=== PATIENT | female | born 1975 | race Caucasian/White ===

== ENCOUNTER 2017-09-10 11:33 | Emergency (ER) | payer BC ==
[2017-09-10] MEDS ORDERED: ONDANSETRON ODT 4 MG TABLET TL STA (12:37)
[2017-09-10] MEDS ORDERED: IBUPROFEN 800 MG TABLET PO STA (12:37)
--- NOTE | 2017-09-10 12:40 | ED Physician Documentation ---
History of Present Illness - Stated complaint Stated Complaint: ANKLE PX - Chief complaint Chief Complaint: Ext Problem - History obtained from History obtained from: Patient, Family - History of Present Illness Timing: How many days ago (2) Pain level max: 7 Pain level now: 5 Improved by: rest Worsened by: walking - Additonal information Additional information: Patient is a 42-year-old female who presents to the emergency department with left ankle pain after flying from [place]. Does not recall an injury. States it is worse with walking and better with rest. No swelling or deformity. She also states she has mild nausea. Her LMP was 2 weeks ago and normal. Review of Systems Cardiac: denies: Chest pain / pressure Respiratory: denies: Dyspnea Musculoskeletal: denies: Neck pain, Back pain Neurologic: denies: Headache PD PAST MEDICAL HISTORY - Past Medical History Past Medical History: Yes Cardiovascular: Hypertension Respiratory: Asthma Neuro: None Endocrine/Autoimmune: None GI: None NIGHT ORDER SELECTOR: None : None HEENT: None Psych: Depression Musculoskeletal: Fibromyalgia Derm: None - Past Surgical History Past Surgical History: Yes General: Other - Present Medications Home Medications: Ambulatory Orders Medication Instructions Recorded Confirmed Citalopram [CeleXA] 20 mg PO DAILY 09/10/17 09/10/17 Ibuprofen [Motrin] 800 mg PO Q8H PRN #30 tablet 09/10/17 Lisinopril/Hydrochlorothiazide 1 tab PO DAILY 09/10/17 09/10/17 [Lisinopril-Hctz 20-25 mg Tab] Norgestrel-Ethinyl Estradiol 1 each PO DAILY 09/10/17 09/10/17 [Low-Ogestrel] Pregabalin [Lyrica] 150 mg PO 09/10/17 Promethazine [Phenergan] 25 mg PO Q6H PRN #10 tab 09/10/17 - Allergies Allergies/Adverse Reactions: Allergies Allergy/AdvReac Type Severity Reaction Status Date / Time No Known Drug Allergies Allergy Verified 09/10/17 12:41 - Social History Does the pt smoke?: No Smoking Status: Never smoker Does the pt drink ETOH?: Yes Does the pt have substance abuse?: No - Immunizations Immunizations are current?: Yes PD ED PE NORMAL - Vitals Vital signs reviewed: Yes - General General: Alert and oriented X 3, No acute distress - HEENT HEENT: Moist mucous membranes - Derm Derm: Warm and dry - Extremities Extremities: No edema, No calf tenderness / cord, Other (TTP medial malleolus L ankle. mild swelling. o/w normal exam of the foot, ankle and lower leg. NVI.) Results - Vitals Vitals: Vital Signs - 24 hr 09/10/17 09/10/17 11:44 13:34 Temperature 36.1 C L 36.1 C L Heart Rate 89 86 Respiratory 18 17 Rate Blood Pressure 123/79 131/56 H O2 Saturation 100 96 Oxygen O2 Source Room air - Rads (name of study) L ankle xray Radiology: Prelim report reviewed, EMP read contemporaneously, See rad report ( Normal ankle radiography) PD MEDICAL DECISION MAKING - ED course Complexity details: reviewed results, re-evaluated patient, considered differential, d/w patient, d/w family ED course: Patient is a 42-year-old female who presents to the emergency department what appears to be a left ankle sprain. Placed in a gel splint and on crutches. Will prescribe a small amount pain medications well. No evidence of fracture on x-ray. No evidence of gout. No cellulitis. No overlying skin changes. No evidence of DVT. Patient counseled regarding signs and symptoms for which I believe and urgent re-evaluation would be necessary. Patient with good understanding of and agreement to plan and is comfortable going home at this time This document was made in part using voice recognition software. While efforts are made to proofread this document, sound alike and grammatical errors may occur. Departure - Departure Disposition: 01 Home, Self Care Clinical Impression: Left ankle sprain Qualifiers: Encounter type: initial encounter Involved ligament of ankle: unspecified ligament Qualified Code(s): S93.402A - Sprain of unspecified ligament of left ankle, initial encounter Condition: Good Instructions: ED Sprain Ankle Follow-Up: Provider,Other [Primary Care Provider] - Within 1 week Prescriptions: Ibuprofen [Motrin] 800 mg PO Q8H PRN #30 tablet PRN Reason: PAIN &/OR FEVER Promethazine [Phenergan] 25 mg PO Q6H PRN #10 tab PRN Reason: Nausea / Vomiting Comments: you may bear weight as tolerated. Return if you worsen. Your xrays are normal today. Discharge Date/Time: 09/10/17 13:30
--- NOTE | 2017-09-10 13:05 | XRAY Preliminary Report ---
Exam: XR ANKLE 3 VIEW LT IMPRESSION: Normal ankle radiography. [facility] SITE ID: [id number]
--- NOTE | 2017-09-10 13:07 | XRAY Report ---
EXAM: LEFT ANKLE RADIOGRAPHY EXAM DATE: 09/10/2017 12:52 PM. CLINICAL HISTORY: L ankle pain, TTP medial malleolus. COMPARISON: None. TECHNIQUE: 3 views. FINDINGS: Bones: Normal. No fractures or bone lesions. Joints: Normal. No effusion. No subluxations. The ankle mortise is normally aligned. Soft Tissues: Unremarkable. IMPRESSION: Normal ankle radiography. [facility] Referring Provider Line: [phone] SITE ID: [id number]
[2017-09-10 13:35] VITALS: BP 131/56
== END 2017-09-10 13:30 | disposition home or self-care (01) ==
LOC: ED 11:33
DX: S93.402A Sprain of unspecified ligament of left ankle, initial encounter (principal); I10 Essential (primary) hypertension; J45.909 Unspecified asthma, uncomplicated; X58.XXXA Exposure to other specified factors, initial encounter
CPT/HCPCS: 73610; 99283; 99284; A9270; Q0162